=== PATIENT | female | born 1960 | race Caucasian/White ===

== ENCOUNTER 2017-08-18 04:38 | Emergency (ER) | payer OTHER ==
[2017-08-18] MEDS ORDERED: NS 1,000 ML IV ONE (04:52)
[2017-08-18 05:11] LABS: PLATELET COUNT 146 10^3/uL (150-400)
[2017-08-18] MEDS ORDERED: fentaNYL 100 MCG/2 ML INJ IVP ONE (05:36)
[2017-08-18] MEDS ORDERED: ONDANSETRON 4 MG/2 ML VIAL IVP ONE (05:36)
[2017-08-18] MEDS ORDERED: KETOROLAC 15 MG/1 ML SDV IVP ONE (05:36)
[2017-08-18] MEDS ORDERED: ONDANSETRON 4 MG/2 ML VIAL ONE (05:37)
[2017-08-18] MEDS ORDERED: IOPAMIDOL (ISOVUE-300) 100 ML BTL ONE ×2 (05:49→05:52)
--- NOTE | 2017-08-18 06:31 | EDPHY ---
H & P Stated Complaint: DIVERTICULITIS FLARE UP X 2 DAYS/HX 30YRS Time Seen by Provider: 08/18/17 04:52 HPI/ROS: HPI The patient presents with 2 days of left lower quadrant abdominal pain which has been intermittent and getting progressively worse. She has associated nausea and low-grade fever of 100.1 F. She says she has had diverticulitis for 30 years and has episodes about twice a year. This is 1 of the most severe episodes. The pain is dull and does not radiate. She reports decreased bowel movements.. REVIEW OF SYSTEMS Constitutional: No fever, no chills. Eyes: No discharge. ENT: No sore throat. Cardiovascular: No chest pain, no palpitations. Respiratory: No cough, no shortness of breath. Gastrointestinal: See HPI Genitourinary: No hematuria. Musculoskeletal: No back pain. Skin: No rashes. Neurological: No headache. PMHx: Hyperlipidemia, type 2 diabetes, diverticulitis last endoscopy 7 years ago Soc Hx: Housed, [facility] patient PHYSICAL General Appearance: Alert, no distress Eyes: Pupils equal and round no pallor or injection ENT, Mouth: Mucous membranes moist Respiratory: There are no retractions, lungs are clear to auscultation Cardiovascular: Regular rate and rhythm Gastrointestinal: Abdomen is soft with tenderness in the left lower quadrant with voluntary guarding Neurological: A&O, moves all extremities Skin: Warm and dry, no rashes Musculoskeletal: Neck is supple non tender Extremities: symmetrical, full range of motion Psychiatric: Patient is oriented X 3, there is no agitation Source: Patient Exam Limitations: No limitations - Personal History Current Tetanus Diphtheria and Acellular Pertussis (TDAP): Yes - Medical/Surgical History Hx Asthma: No Hx Chronic Respiratory Disease: No Hx Diabetes: Yes Hx Cardiac Disease: No Hx Renal Disease: No Hx Cirrhosis: No Hx Alcoholism: No Hx HIV/AIDS: No Hx Splenectomy or Spleen Trauma: No Other PMH: APPY, HYSTERECTOMY , DIVERTICULITIS. HIGH CHOLESTEROL, DMII - Social History Smoking Status: Never smoked Constitutional: Initial Vital Signs Temperature (C) 37 C 08/18/17 04:46 Heart Rate 117 H 08/18/17 04:46 Respiratory Rate 16 08/18/17 04:46 Blood Pressure 130/103 H 08/18/17 04:46 O2 Sat (%) 96 08/18/17 04:46 O2 Delivery Mode Room Air Allergies/Adverse Reactions: morphine [Morphine] Allergy (Severe, Verified 08/14/13 12:17) NAUSEA & VOMITING Home Medications: Medication Instructions Recorded Lisinopril [Zestril 10 mg (RX)] 10 mg PO DAILY 02/08/12 Simvastatin 40 mg PO DAILY 02/08/12 Metformin HCl 08/14/13 Amoxicillin/Clavulanate Pot 875 mg PO BID #14 tab 08/18/17 [Augmentin 875 MG TAB (*)] Inuslin Humilin N 08/18/17 Medical Decision Making Differential Diagnosis: This is a 56-year-old female who presents from home with left lower quadrant abdominal pain associated with nausea for the last 3 days. The patient has a history of diverticulitis and this feels very similar. However, this is 1 of the more severe episodes. Differential diagnosis includes diverticulitis, diverticulitis with complication , colitis. In the emergency department, patient was given IV fluids and medication for pain. Labs were checked and were relatively unremarkable with mild leukocytosis. CT scan was performed and did demonstrate diverticulitis without complication. Plan for discharge with antibiotics and follow up with her usual doctors at [facility] with return to the emergency department if she is worse. - Data Points Laboratory Results: Laboratory Results 08/18/17 05:00 08/18/17 05:00 08/18/17 08/18/17 05:00 05:00 WBC 10.85 10^3/uL H 10^3/uL (3.80-9.50) RBC 5.15 10^6/uL 10^6/uL (4.18-5.33) Hgb 14.9 g/dL g/dL (12.6-16.3) Hct 45.0 % % (38.0-47.0) MCV 87.4 fL fL (81.5-99.8) MCH 28.9 pg pg (27.9-34.1) MCHC 33.1 g/dL g/dL (32.4-36.7) RDW 13.6 % % (11.5-15.2) Plt Count 146 10^3/uL L 10^3/uL (150-400) MPV 11.4 fL fL (8.7-11.7) Neut % (Auto) 66.6 % % (39.3-74.2) Lymph % (Auto) 23.0 % % (15.0-45.0) Carter % (Auto) 7.5 % % (4.5-13.0) Eos % (Auto) 2.1 % % (0.6-7.6) Baso % (Auto) 0.4 % % (0.3-1.7) Nucleat RBC Rel Count 0.0 % % (0.0-0.2) Absolute Neuts (auto) 7.23 10^3/uL H 10^3/uL (1.70-6.50) Absolute Lymphs (auto) 2.50 10^3/uL 10^3/uL (1.00-3.00) Absolute Monos (auto) 0.81 10^3/uL H 10^3/uL (0.30-0.80) Absolute Eos (auto) 0.23 10^3/uL 10^3/uL (0.03-0.40) Absolute Basos (auto) 0.04 10^3/uL 10^3/uL (0.02-0.10) Absolute Nucleated RBC 0.00 10^3/uL 10^3/uL (0-0.01) Immature Gran % 0.4 % % (0.0-1.1) Immature Gran # 0.04 10^3/uL 10^3/uL (0.00-0.10) Sodium 144 mEq/L mEq/L (135-145) Potassium 4.1 mEq/L mEq/L (3.3-5.0) Chloride 107 mEq/L mEq/L (97-110) Carbon Dioxide 20 mEq/l L mEq/l (22-31) Anion Gap 17 mEq/L H mEq/L (8-16) BUN 14 mg/dL mg/dL (7-23) Creatinine 0.6 mg/dL mg/dL (0.6-1.0) Estimated GFR > 60 Glucose 170 mg/dL H mg/dL (70-100) Calcium 8.9 mg/dL mg/dL (8.5-10.4) Total Bilirubin 0.7 mg/dL mg/dL (0.1-1.4) Conjugated Bilirubin 0.5 mg/dL mg/dL (0.0-0.5) Unconjugated Bilirubin 0.2 mg/dL mg/dL (0.0-1.1) AST 30 IU/L IU/L (14-46) ALT 47 IU/L IU/L (9-52) Alkaline Phosphatase 76 IU/L IU/L (38-126) Total Protein 6.8 g/dL g/dL (6.3-8.2) Albumin 3.9 g/dL g/dL (3.5-5.0) Lipase 107 IU/L IU/L (23-300) Medications Given: Discontinued Medications Fentanyl (Sublimaze) 50 mcg IVP EDNOW ONE Stop: 08/18/17 05:37 Last Admin: 08/18/17 05:45 Dose: 50 mcg Sodium Chloride (Ns) 1,000 mls @ 0 mls/hr IV EDNOW ONE; Wide Open PRN Reason: Protocol Stop: 08/18/17 04:53 Last Admin: 08/18/17 04:57 Dose: 1,000 mls Ketorolac Tromethamine (Toradol) 15 mg IVP EDNOW ONE Stop: 08/18/17 05:37 Last Admin: 08/18/17 05:40 Dose: 15 mg Ondansetron HCl (Zofran) 4 mg IVP EDNOW ONE Stop: 08/18/17 05:37 Last Admin: 08/18/17 05:40 Dose: 4 mg Departure - Departure Disposition: Home, Routine, Self-Care Clinical Impression: Diverticulitis Condition: Good Instructions: Diverticulitis (ED), Diverticulitis Diet (ED) Additional Instructions: I recommend that you take the antibiotic as prescribed. You should follow up with your [facility] physician in 1-2 days for recheck. Return to the emergency department if your worse in any way. Referrals: [facility] ,. [[facility] for Call Sched] - As per Instructions Prescriptions: Amoxicillin/Clavulanate Pot [Augmentin 875 MG TAB (*)] 875 mg PO BID #14 tab
[2017-08-18] MEDS ORDERED: AMOXICILLIN/CLAVULANATE POT 875/125 MG TAB PO ONE (06:37)
[2017-08-18] MEDS ORDERED: HYDROCOD/APAP 5/325 PREPACK#6 BTL TAKEHOME ONE (06:38)
[2017-08-18 07:09] VITALS: BP 137/82
== END 2017-08-18 07:18 | disposition home or self-care (01) ==
DX: K57.32 Diverticulitis of large intestine without perforation or abscess without bleeding (principal); E11.9 Type 2 diabetes mellitus without complications; E86.9 Volume depletion, unspecified; Z79.84 Long term (current) use of oral hypoglycemic drugs; Z90.710 Acquired absence of both cervix and uterus
CPT/HCPCS: 96374; J1885; J2405; J3010; Q9967